=== PATIENT | male | born 1980 | race Caucasian/White ===

== ENCOUNTER 2016-09-20 15:55 | Emergency (ER) | payer MEDICARE, OTHER ==
[2016-09-20 15:56] VITALS: BP 162/82
--- NOTE | 2016-09-20 17:00 | ERNOTE ---
Medical Problem HPI - Narrative Date of Service: 09/20/16 - General Chief Complaint: Laceration Time Seen by Provider: 09/20/16 16:45 Source: other - Caregiver Exam Limitations: other - Mentally disabled, unable to communicate needs or follow commands - Immun/Allergies/Home Medications Immunizations: IMMUNIZATION HX History of Influenza Vaccine No Hx Pneumococcal Vaccination No Allergies/Adverse Reactions: Allergies plasma protein fraction [From Plasmanate] Allergy (Verified 10/09/16 16:31) Home Medications: HOME MEDICATIONS Acetaminophen [Tylenol] 325 mg PO Q4H PRN 06/16/12 [Last Taken 09/23/14 12:15] Albuterol Sulfate [Albuterol Sulfate 2.5 MG/0.5ML] 2.5 mg IH QID PRN 06/16/12 [ Last Taken 10/16/13] Desloratadine [Clarinex] 5 mg PO DAILY 06/16/12 [Last Taken 09/23/14 07:00] Divalproex Sodium [Depakote ER] 500 mg PO BID 06/16/12 [Last Taken 09/23/14 07: 00] Gly/Dimeth/Petrolat,Wht/Water [Cetaphil Moisturizing Cream] 1 appl TD DAILY PRN 06/16/12 [Last Taken 10/16/13] Hydroxyzine HCl 50 mg PO HS 06/16/12 [Last Taken 10/16/13] LORazepam [Ativan] 0.5 mg PO TID 06/16/12 [Last Taken 10/16/13] LORazepam [Ativan] 1 mg PO PRN PRN 06/16/12 [Last Taken 10/16/13] Mometasone Furoate [Nasonex] 2 puff NS DAILY 06/16/12 [Last Taken 10/16/13] Oxcarbazepine 600 mg PO BID 06/16/12 [Last Taken 10/16/13] Prochlorperazine Maleate [Compazine] 5 mg PO Q6H PRN 06/16/12 [Last Taken ] Vits A and D/White Pet/Lanolin [Vitamin A & D Ointment Packet] 1 appl TP TID PRN 06/16/12 [Last Taken 10/16/13] lamoTRIgine [Lamotrigine] 200 mg PO BID 06/16/12 [Last Taken 09/23/14 07:00] Alendronate Sodium [Fosamax] 70 mg PO MO 09/25/13 [Last Taken 09/21/14 07:00] Chlorhexidine Gluconate [Peridex 0.12%] 4 sprays PO DAILY 09/25/13 [Last Taken 09/23/14 07:00] Divalproex Sodium [Depakote ER] 250 mg PO HS 09/25/13 [Last Taken 10/16/13] Neomycin/Bacitracin/Polymyxinb [Triple Antibiotic Ointment] 1 each TP PRN PRN [Last Taken 10/16/13] Sodium Fluoride [Prevident 5000] 1 appl DT HS 09/25/13 [Last Taken 10/16/13] Calcium Carbonate/Vitamin D3 [Calcium 600 + Vit D 400 Softgl] 1 each PO TID [Last Taken Unknown] Ergocalciferol [Calciferol] 50,000 units PO Q30D 09/24/14 [Last Taken 08/31/14] Fluticasone Propionate [Flovent Hfa] 1 puff IH DAILY 07/05/15 [Last Taken Unknown] Magnesium Citrate 296 ml PO ONCE #1 bottle 07/05/15 [Last Taken Unknown] guaiFENesin [Mucinex] 600 mg PO BID 07/05/15 [Last Taken Unknown] - History of Present History Narrative: 36 y/o male brought to the ED by his caregiver for lacerations to his face due to a fall at home. His gait is usually unsteady anyway. His tetanus is current. The fall was witnessed. There was no LOC. Review of Systems - Review of Systems Constitutional: Absent: recent illness, fever, decreased activity level EYE: Present: no symptoms reported ENT: Present: no symptoms reported Respiratory: Present: no symptoms reported Cardiology: Present: no symptoms reported Gastrointestinal/Abdominal: Absent: nausea, vomiting Genitourinary: Present: no symptoms reported Musculoskeletal: Absent: muscle stiffness, joint swelling Skin: Absent: lesions, lumps, change in color Neurological: Present: pre-existing deficit. Absent: weakness Endocrine: Present: no symptoms reported Hematologic/Lymphatic: Present: no symptoms reported Psych: Present: no symptoms reported - Patient's Past Medical History Patient History - Medical: Seizures, Other Patient History - Cardiac/Respiratory: No pertinent hx Patient History - Cancer: No Hx of Cancer Patient History - Surgical Procedures: No surgical history Patient History - Other: None - Social History Living Situations: assisted living Abuse History: No History of abuse Psych History: Current tx/ever been on anti-depressants or anti-anxiety meds Alcohol Use: none Drug Use: none - Immunizations Hx Pneumococcal Vaccination: No History of Influenza Vaccine: No Physical Exam - Physical Exam General Appearance: Present: wd/wn, alert, no apparent distress, active Eye Exam: Normal inspection: bilateral Respiratory: Present: no respiratory distress, no accessory muscle use Cardiovascular/Chest: Present: normal peripheral pulses Extremity Exam: Present: normal inspection, normal range of motion, no edema Neurological Exam: Present: alert, no motor/sensory deficits, other - Does not communicate or follow commands, uncooperative and combative . Absent: oriented , normal mood/affect Skin Exam: Present: normal color, warm/dry, other - small laceration lateral to left eye and anterior to right ear ED Progress - Vital Signs Patient's Vital Signs:: I have reviewed the patient's vital signs. - Progress/Reassessment Chief Complaint: Laceration Progress:: Unchanged Plan - Plan Plan: Wounds cleansed and dressed with great difficulty, laceration in front of right ear would have a better outcome with closure but patient is combative to the extent that sedation would be required. Discussed with caregiver that wound will heal, but will take some time. Departure - Departure Clinical Impression: Laceration of face, multiple sites Disposition: Home self-care Condition: Stable Instructions: Laceration Care, Adult, [id number] Additional Instructions: Clean wounds with mild soap and water, bandage as needed Continue routine medications and treatments Follow up for any concerns Referrals: Dontrell Vyas MD [Primary Care Provider] -
--- OUTSIDE RECORDS SUMMARY | 2016-09-20 17:14 | XMS REPORT | Continuity of Care Document ---
:1980 Author Organization [facility] ([facility]) Address [address] [place] [address] Phone [phone] Care Team Providers Name Role Phone Jennifer Vyascristina Primary Care Provider [phone] Source Comments This disclosure is being made pursuant to the Care Everywhere program, applicable federal and state laws, and may not contain all informaitonavailable regarding this patient.[facility] ([facility]) Active Allergies and Adverse Reactions Allergen Noted Date Severity Reactions Comments Albumen (Egg White) Unknown Other Agent 09/16/2009 Unknown Plasmante, cats, weeds, molds, trees, dustmites Current Medications Prescription Sig. Disp. Refills Start Date End Date Status OXcarbazepine take 600 mg by Active (TRILEPTAL) 600 mg mouth 2 times tablet daily. lamoTRIgine (LAMICTAL) take 150 mg by Active 150 mg tablet mouth 2 times daily. LORazepam (ATIVAN) 1 mg take 1 mg by mouth Active tablet 3 times daily. And prn for seizures and anxiety calcium take 1 Tab by mouth Active carbonate-vitamin D 3 times daily with (OYST-JASE-D 500) 1,250 meals. mg-200 unit per tablet hydrOXYzine (VISTARIL) take 50 mg by mouth Active 50 mg capsule at bedtime. acetaminophen (GENEBS) take 2 Tabs by Active 325 mg tablet mouth every 6 hours as needed. ergocalciferol (VITAMIN take 50,000 Units Active D2) 50,000 unit capsule by mouth every month. divalproex (DEPAKOTE ER) take 500 mg by Active 500 mg ER tablet mouth 2 times daily. desloratadine (CLARINEX) Take 5 mg by mouth Active 5 mg tablet daily. alendronate 70 mg tablet Take 70 mg by mouth Active every week fluticasone 50 Use 2 Sprays into Active mcg/Actuation nasal both nostrils daily spray [id number] Apply topically as Active myxin B ointment needed mupirocin (BACTROBAN) 2 Use into both Active % nasal ointment nostrils 2 times daily albuterol 2.5 mg/3 mL Use 3 mL by Active inhalation solution inhalation every 4 hours as needed PROchlorPERAZINE PO Take 5 mg by mouth Active every 6 hours as needed sodium fluoride 1.1 % Apply 1 application 51 g 11 02/17/2015 Active dental cream to the teeth at bedtime Nothing by mouth for 30 minutes after brushing. chlorhexidine 0.12 % Swish and 473 mL 0 02/17/2015 Active oral rinse expectorate 5 ml twice daily as directed. Nothing by mouth for 30 minutes after. benzoyl peroxide 10 % Apply topically Active topical wash daily. ondansetron 4 mg tablet Take 4 mg by mouth Active as needed. guaiFENesin 20 mg/mL Take 10 mL by mouth Active syrup as needed. polyethylene glycol 3350 Take 17 g by mouth Active (GAVILAX) 17 gram packet daily as needed. sodium fluoride 1.1 % Apply 1 application 51 g 11 09/06/2016 Active dental cream to the teeth at bedtime. Nothing by mouth for 30 minutes after brushing. chlorhexidine 0.12 % Swish and 473 mL 0 09/06/2016 Active oral rinse expectorate 5 ml twice daily as directed. Nothing by mouth for 30 minutes after. 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 Unspecified disturbance of conduct 11/07/2006 Other constipation 11/07/2006 Most Recent Encounters Date Type Specialty Providers Description 09/06/2016 Hospital Encounter Ambulatory Surgery Chris Ricketts, Dx: Dental caries DDS (Primary Dx) 09/06/2016 Surgery Ambulatory Surgery Chris Ricketts, RESTORATIONS DDS WITH/WITHOUT EXTRACTIONS, ADULT 09/05/2016 Telephone Dentistry Tavo Garg Chief Comp: J, DDS Monitored Phone Call 08/23/2016 Hospital Encounter Anesthesiology Default, Other Chief Comp: Patient Billg - Defo Reported Reason For Tashi, Visit DESTINEY Gore 08/23/2016 Office Visit Internal Medicine - Default, Other Dx: Profound Specialty Billg - Defo intellectual Earl Luke disabilities F ([id number]), Msc Surg [facility] 08/23/2016 Anesthesia Event Ambulatory Surgery Bao Akins ARNP 07/11/2016 Orders/Notes Dentistry Tavo Garg Dx: Profound LUCILA Walters intellectual disabilities (Primary Dx) Social History Tobacco Use Types Packs/Day Years Used Date Never Smoker Smokeless Tobacco: Never Used Alcohol Use Drinks/Week oz/Week Comments No Last Filed Vital Signs Vital Sign Reading Time Taken Blood Pressure 113/72 09/06/2016 3:45 PM POWER LINE INSTALLER AND REPAIRER Pulse 77 09/06/2016 12:51 PM POWER LINE INSTALLER AND REPAIRER Temperature 36.4 C (97.5 F) 09/06/2016 4:10 PM POWER LINE INSTALLER AND REPAIRER Respiratory Rate 20 09/06/2016 4:10 PM POWER LINE INSTALLER AND REPAIRER Height 1.5 m (4' 11.06") 01/31/2012 3:18 PM CDT Weight 56.7 kg (125 lb) 09/06/2016 12:51 PM POWER LINE INSTALLER AND REPAIRER Body Mass Index 25.2 09/06/2016 12:51 PM POWER LINE INSTALLER AND REPAIRER Oxygen Saturation 96% 09/06/2016 4:10 PM POWER LINE INSTALLER AND REPAIRER Plan of Care Health Maintenance Due Date Last Done Comments Hepatitis B Vaccine (1 of 3 - Primary Series) 1980 Tdap Vaccine 1990 Lipid Disorder Screening 1997 MMR Vaccine 1997 Td Vaccine 1997 Influenza Vaccine: Seasonal (#1) 01/31/2016 Procedures from Last 3 Months Procedure Name Priority Date/Time Associated Diagnosis Comments ABSTRACTED BY BILLING Routine 09/06/2016 3:59 Profound Results for this STAFF PM POWER LINE INSTALLER AND REPAIRER intellectual procedure are in disabilities the results section. RESTORATIONS 09/06/2016 1:34 Profound WITH/WITHOUT PM POWER LINE INSTALLER AND REPAIRER intellectual EXTRACTIONS, ADULT disabilities Results from Last 3 Months DENTISTRY OR CASE (09/06/2016 3:59 PM) Narrative Chris Ricketts DDS 09/06/20163:59 PM Operation Record Procedure Date: 09/06/16 Surgical Service: [facility] Dentistry Operating Room Data: 9 Location: [facility] Attending Staff: Chris Ricketts Resident Surgeon: Tavo Garg Literacy Education Professor: Nimco Gomez Anesthesia:See Anesthesia Flow Sheet. Pre-operative Diagnosis:Plaque, Calculus and Caries and Mental Retardation Operation/Procedure: The medical history was reviewed and the pre-anesthesia evaluation was completed.The patient was taken to the OR, placed in a supine position and placed under general anesthesia by the Department of Anesthesia.A nasoendotracheal tube was placed by the Department of Anesthesia and secured by the Department of Hospital Dentistry.A throat pack was placed by the Department of Hospital Dentistry.A full mouth exam was completed.Examination of the tongue, floor of mouth and mucosa revealed no abnormal findings.X-rays were made and revealed.A Cavitron Debridement was performed and hand instruments used to remove sub and supragingival calculus.Tooth #7F was prepared and restored using dentin condition and Fuji II LC.The mouth was suctioned free of all debris, throat pack was removed and the patient care was turned over to the Department of Anesthesia for extubation and then transported to 1st stage recovery. Prescription written were Prevident and Chlorhexidine Oral Rinse. Proper post-op instructions were given to the patient's family/manager park.Patient to return in 18 months for recall. Post-operative Diagnosis: same Complications:None. Teaching Statement Dr. Chris Snowden present for the entire procedure. Tavo Garg DDS
== END 2016-09-20 17:09 | disposition home or self-care (01) ==
LOC: ER 15:55
DX: S01.81XA Laceration without foreign body of other part of head, initial encounter (principal); S01.311A Laceration without foreign body of right ear, initial encounter; W19.XXXA Unspecified fall, initial encounter; Y92.009 Unspecified place in unspecified non-institutional (private) residence as the place of occurrence of the external cause

== ENCOUNTER 2016-10-09 15:46 | Emergency (ER) | payer MEDICARE, OTHER ==
[2016-10-09 16:01] VITALS: BP 105/93
[2016-10-09 16:02] LABS: Hematocrit 40.6 % (42.0-52.0); Hemoglobin 13.9 gm/dL (13.5-18.0); Mean Cell Volume 98.3 fl (78-100); Mean Corpuscular Hemoglobin 33.7 pg (27-31); Mean Corpuscular Hgb Conc 34.2 g/dl (32-36); Neutrophil # 5.6 K/mm3 (1.3-6.0); Neutrophil % 57.8 % (42-75.0); Platelet Count 201 K/mm3 (150-450); Red Blood Count 4.13 M/mm3 (4.7-6.0); Red Cell Distribution Width 12.5 % (11.5-14.0); White Blood Count 9.8 K/mm3 (4.0-10.5)
--- OUTSIDE RECORDS SUMMARY | 2016-10-09 16:11 | XMS REPORT | Continuity of Care Document ---
:1980 Author Organization [facility] ([facility]) Address [address] [place] [address] Phone [phone] Care Team Providers Name Role Phone Jennifer Vyascristina Primary Care Provider [phone] Source Comments This disclosure is being made pursuant to the Care Everywhere program, applicable federal and state laws, and may not contain all informaitonavailable regarding this patient.[facility] ([facility]) Active Allergies and Adverse Reactions Allergen [...] Active mcg/Actuation nasal both nostrils daily spray [id number] Apply topically as Active myxin B ointment [...] Taken Blood Pressure 113/72 09/06/2016 3:45 PM OCCUPATIONAL HEALTH NURSE Pulse 77 09/06/2016 12:51 PM OCCUPATIONAL HEALTH NURSE Temperature 36.4 C (97.5 F) 09/06/2016 4:10 PM OCCUPATIONAL HEALTH NURSE Respiratory Rate 20 09/06/2016 4:10 PM OCCUPATIONAL HEALTH NURSE Height 1.5 m (4' 11.06") 01/31/2012 3:18 PM CDT Weight 56.7 kg (125 lb) 09/06/2016 12:51 PM OCCUPATIONAL HEALTH NURSE Body Mass Index 25.2 09/06/2016 12:51 PM OCCUPATIONAL HEALTH NURSE Oxygen Saturation 96% 09/06/2016 4:10 PM OCCUPATIONAL HEALTH NURSE Plan of Care Health Maintenance Due Date Last Done Comments Hepatitis B Vaccine (1 of 3 - Primary Series) 1980 Tdap Vaccine 1990 Lipid Disorder Screening 1997 MMR Vaccine 1997 Td Vaccine 1997 Influenza Vaccine: Seasonal (#1) 01/31/2016 Procedures from Last 3 Months Procedure Name Priority Date/Time Associated Diagnosis Comments ABSTRACTED BY BILLING Routine 09/06/2016 3:59 Profound Results for this STAFF PM OCCUPATIONAL HEALTH NURSE intellectual procedure are in disabilities the results section. RESTORATIONS 09/06/2016 1:34 Profound WITH/WITHOUT PM OCCUPATIONAL HEALTH NURSE intellectual EXTRACTIONS, ADULT disabilities Results from Last 3 Months DENTISTRY OR CASE (09/06/2016 3:59 PM) Narrative Chris Ricketts DDS 09/06/20163:59 PM Operation Record Procedure Date: 09/06/16 Surgical Service: [facility] Dentistry Operating Room Data: 9 [address]: [facility] Attending Staff: Chris Ricketts Resident Surgeon: Tavo Garg Cost Control Analyst: Nimco Gomez Anesthesia:See Anesthesia Flow Sheet. Pre-operative [...] post-op instructions were given to the patient's family/director of in service education.Patient to return in 18 months for recall. Post-operative Diagnosis: same Complications:None. Teaching Statement Dr. Chris Snowden present for the entire procedure. Tavo Garg DDS
[2016-10-09 16:15] LABS: Albumin * 3.4 gm/dl (3.4-5.0); Anion Gap 11.6 mmol/L (6.8-13.8); BUN/Creatinine Ratio 14.1 (9.0-21.6); Bilirubin, Total 0.2 mg/dL (0.0-1.1); Ca. Corrected For Albumin 9.2 mg/dL (8.4-10.2); Carbon Dioxide 31.6 mmol/L (24-32.6); Potassium 4.2 mmol/L (3.4-4.6); Total Protein 7.6 gm/dL (6.2-8.2)
--- NOTE | 2016-10-09 16:15 | ERNOTE ---
Medical Problem HPI - Narrative Date of Service: 10/09/16 - General Chief Complaint: Flu Symptoms Time Seen by Provider: 10/09/16 16:02 Source: RN/MD, RN notes reviewed, old records, other - State Assessed Properties Director Exam Limitations: other - autism, profound mental retardation, nonverbal - Immun/Allergies/Home Medications Immunizations: IMMUNIZATION HX Immunizations Up to Date Yes History of Influenza Vaccine Yes Hx Pneumococcal Vaccination No Allergies/Adverse Reactions: Allergies plasma protein fraction [From Plasmanate] Allergy (Verified 10/09/16 16:31) Home Medications: HOME MEDICATIONS Acetaminophen [Tylenol] 325 mg PO Q4H PRN 06/16/12 [Last Taken 09/23/14 12:15] Albuterol Sulfate [Albuterol Sulfate 2.5 MG/0.5ML] 2.5 mg IH QID PRN 06/16/12 [ Last Taken 10/16/13] Desloratadine [Clarinex] 5 mg PO DAILY 06/16/12 [Last Taken 09/23/14 07:00] Divalproex Sodium [Depakote ER] 500 mg PO BID 06/16/12 [Last Taken 09/23/14 07: 00] Gly/Dimeth/Petrolat,Wht/Water [Cetaphil Moisturizing Cream] 1 appl TD DAILY PRN 06/16/12 [Last Taken 10/16/13] Hydroxyzine HCl 50 mg PO HS 06/16/12 [Last Taken 10/16/13] LORazepam [Ativan] 0.5 mg PO TID 06/16/12 [Last Taken 10/16/13] LORazepam [Ativan] 1 mg PO PRN PRN 06/16/12 [Last Taken 10/16/13] Mometasone Furoate [Nasonex] 2 puff NS DAILY 06/16/12 [Last Taken 10/16/13] Oxcarbazepine 600 mg PO BID 06/16/12 [Last Taken 10/16/13] Prochlorperazine Maleate [Compazine] 5 mg PO Q6H PRN 06/16/12 [Last Taken ] Vits A and D/White Pet/Lanolin [Vitamin A & D Ointment Packet] 1 appl TP TID PRN 06/16/12 [Last Taken 10/16/13] lamoTRIgine [Lamotrigine] 200 mg PO BID 06/16/12 [Last Taken 09/23/14 07:00] Alendronate Sodium [Fosamax] 70 mg PO MO 09/25/13 [Last Taken 09/21/14 07:00] Chlorhexidine Gluconate [Peridex 0.12%] 4 sprays PO DAILY 09/25/13 [Last Taken 09/23/14 07:00] Divalproex Sodium [Depakote ER] 250 mg PO HS 09/25/13 [Last Taken 10/16/13] Neomycin/Bacitracin/Polymyxinb [Triple Antibiotic Ointment] 1 each TP PRN PRN [Last Taken 10/16/13] Sodium Fluoride [Prevident 5000] 1 appl DT HS 09/25/13 [Last Taken 10/16/13] Calcium Carbonate/Vitamin D3 [Calcium 600 + Vit D 400 Softgl] 1 each PO TID [Last Taken Unknown] Ergocalciferol [Calciferol] 50,000 units PO Q30D 09/24/14 [Last Taken 08/31/14] Fluticasone Propionate [Flovent Hfa] 1 puff IH DAILY 07/05/15 [Last Taken Unknown] Magnesium Citrate 296 ml PO ONCE #1 bottle 07/05/15 [Last Taken Unknown] guaiFENesin [Mucinex] 600 mg PO BID 07/05/15 [Last Taken Unknown] - History of Present History Narrative: 36 y/o male brought to the ED by his continuity director for a cough and congestion that began 3 days ago. He initially presented to the walk-in clinic, but was sent here due to concerns over his poor fluid intake today and not urinating since early this morning. He has not been febrile. He has not been given anything for his symptoms. Review of Systems - Review of Systems Constitutional: Present: decreased activity level. Absent: fever, chills EYE: Present: no symptoms reported ENT: Present: nose congestion, nasal drainage. Absent: ear discharge Respiratory: Present: cough. Absent: shortness of breath, wheezing Cardiology: Absent: syncope, edema Gastrointestinal/Abdominal: Present: eating less, drinking less. Absent: vomiting, diarrhea Genitourinary: Present: decreased urinary output. Absent: hematuria Musculoskeletal: Present: no symptoms reported Skin: Absent: rash, lesions Neurological: Present: pre-existing deficit Endocrine: Present: no symptoms reported Hematologic/Lymphatic: Present: no symptoms reported Psych: Present: no symptoms reported - Patient's Past Medical History Patient History - Medical: Seizures, Other - Autism, Profound mental retardation Patient History - Cardiac/Respiratory: No pertinent hx Patient History - Cancer: No Hx of Cancer Patient History - Surgical Procedures: T & A, ENT Patient History - Other: None - Social History Living Situations: other Abuse History: No History of abuse Psych History: Current tx/ever been on anti-depressants or anti-anxiety meds Smoking Status: Never smoker Alcohol Use: none Drug Use: none - Immunizations Immunizations Up to Date: Yes Hx Pneumococcal Vaccination: No History of Influenza Vaccine: Yes Physical Exam - Physical Exam General Appearance: Present: wd/wn, alert, no apparent distress, active, other - resists exam Ears, Nose, Throat: Present: nasal congestion, pharyngeal erythema. Absent: abnormal TM (R), abnormal TM (L), sinus pain/drainage, pharyngeal swelling Neck: Present: normal inspection, full range of motion Respiratory: Present: no respiratory distress, normal breath sounds, no accessory muscle use, lungs clear Cardiovascular/Chest: Present: regular rate, rhythm, no murmur Neurological Exam: Present: alert. Absent: oriented, normal mood/affect Skin Exam: Present: normal color, warm/dry ED Progress - Results and Orders Patient's Lab Results:: I have reviewed the patient's lab results. - Vital Signs Patient's Vital Signs:: I have reviewed the patient's vital signs. Vital Signs: Vital Signs 10/09/16 15:53 Temperature 36.6 C Pulse Rate 82 Respiratory 18 Rate Blood Pressure 105/93 O2 Sat by Pulse 95 Oximetry - Progress/Reassessment Chief Complaint: Flu Symptoms Progress:: Unchanged Departure - Departure Clinical Impression: Upper respiratory infection, viral Disposition: Home self-care Condition: Stable Instructions: Upper Respiratory Infection, Adult, Ybgu-za-Ynsy Additional Instructions: Encourage liquids Give Tylenol as directed for discomfort - may help improve oral intake Continue current medications Referrals: Dontrell Vyas MD [Primary Care Provider] -
== END 2016-10-09 16:49 | disposition home or self-care (01) ==
LOC: ER 15:46
DX: J06.9 Acute upper respiratory infection, unspecified (principal); B97.89 Other viral agents as the cause of diseases classified elsewhere; R56.9 Unspecified convulsions

== ENCOUNTER 2016-11-20 16:54 | Emergency (ER) | payer MEDICARE, OTHER ==
[2016-11-20 16:55] VITALS: BP 105/93
--- OUTSIDE RECORDS SUMMARY | 2016-11-20 17:35 | XMS REPORT | Continuity of Care Document ---
:1980 Author Organization [facility] ([facility]) Address [address] [place] [address] Phone [phone] Care Team Providers Name Role Phone Meredithjasonpaty Dontrell Primary Care Provider [phone] Source Comments This disclosure is being made pursuant to the Care Everywhere program, applicable federal and state laws, and may not contain all informaitonavailable regarding this patient.[facility] ([facility]) Active Allergies and Adverse Reactions Allergen [...] Active mcg/Actuation nasal both nostrils daily spray [id number] Apply topically as Active myxin B ointment [...] Encounters Date Type Specialty Providers Description 09/06/2016 Surgery Ambulatory Surgery Chris Ricketts, MICHAEL DDS WITH/WITHOUT EXTRACTIONS, ADULT 09/05/2016 Telephone Dentistry Tavo Garg Chief Comp: LUCILA Walters Monitored Phone Call 08/23/2016 Hospital Encounter Anesthesiology Default, Other Chief Comp: Patient Billg - Defo Reported Reason For Tashi, Visit DESTINEY Gore 08/23/2016 Office Visit Internal Medicine - Default, Other Dx: Profound Specialty Billg - Defo intellectual Earl Luke MD ([id number]), [facility] 08/23/2016 Anesthesia Event Ambulatory Surgery Bao Akins ARNP Social History Tobacco Use Types Packs/Day Years Used Date Never Smoker Smokeless Tobacco: Never Used Alcohol Use Drinks/Week oz/Week Comments No Last Filed Vital Signs Vital Sign Reading Time Taken Blood Pressure 113/72 09/06/2016 3:45 PM SOFTWARE PROGRAM MANAGER Pulse 77 09/06/2016 12:51 PM SOFTWARE PROGRAM MANAGER Temperature 36.4 C (97.5 F) 09/06/2016 4:10 PM SOFTWARE PROGRAM MANAGER Respiratory Rate 20 09/06/2016 4:10 PM SOFTWARE PROGRAM MANAGER Height 1.5 m (4' 11.06") 01/31/2012 3:18 PM CDT Weight 56.7 kg (125 lb) 09/06/2016 12:51 PM SOFTWARE PROGRAM MANAGER Body Mass Index 25.2 09/06/2016 12:51 PM SOFTWARE PROGRAM MANAGER Oxygen Saturation 96% 09/06/2016 4:10 PM SOFTWARE PROGRAM MANAGER Plan of Care Health Maintenance Due Date Last Done Comments Hepatitis B Vaccine (1 of 3 - Primary Series) 1980 Tdap Vaccine 1990 Lipid Disorder Screening 1997 MMR Vaccine 1997 Td Vaccine 1997 Influenza Vaccine: Seasonal (Season Ended) 2017 Procedures from Last 3 Months Procedure Name Priority Date/Time Associated Diagnosis Comments ABSTRACTED BY BILLING Routine 09/06/2016 3:59 Profound Results for this STAFF PM SOFTWARE PROGRAM MANAGER intellectual procedure are in disabilities the results section. RESTORATIONS 09/06/2016 1:34 Profound WITH/WITHOUT PM SOFTWARE PROGRAM MANAGER intellectual EXTRACTIONS, ADULT disabilities Results from Last 3 Months DENTISTRY OR CASE (09/06/2016 3:59 PM) Chris Antoine, LUCILA 09/06/20163:59 PM Operation Record Procedure Date: 09/06/16 Surgical Service: Hospital Dentistry Operating Room Data: 9 Location: [facility] Attending Staff: Chris Ricketts Resident Surgeon: Tavo Garg Outside Plant Cable Engineer: Nimco Gomez Anesthesia:See Anesthesia Flow Sheet. Pre-operative [...] post-op instructions were given to the patient's family/sports marketing coordinator.Patient to return in 18 months for recall. Post-operative Diagnosis: same Complications:None. Teaching Statement Dr. Chris Snowden present for the entire procedure. Tavo Garg DDS
[2016-11-20 17:58] LABS: Hematocrit 45.6 % (42.0-52.0); Hemoglobin 15.3 gm/dL (13.5-18.0); Mean Cell Volume 100.4 fl (78-100); Mean Corpuscular Hemoglobin 33.7 pg (27-31); Mean Corpuscular Hgb Conc 33.6 g/dl (32-36); Mean Platelet Volume 10.9 fl (6.0-9.5); Platelet Count 173 K/mm3 (150-450); Red Blood Count 4.54 M/mm3 (4.7-6.0); Red Cell Distribution Width 12.8 % (11.5-14.0)
[2016-11-20 17:59] LABS: Total Cells Counted 100
[2016-11-20 18:13] LABS: Albumin * 3.8 gm/dl (3.4-5.0); Anion Gap 13.9 mmol/L (6.8-13.8); Bilirubin, Total 0.2 mg/dL (0.0-1.1); Ca. Corrected For Albumin 9.5 mg/dL (8.4-10.2); Calcium * 9.7 mg/dL (7.9-10.9); Carbon Dioxide 29.7 mmol/L (24-32.6); Potassium 4.6 mmol/L (3.4-4.6); Total Protein 7.9 gm/dL (6.2-8.2); Valproic Acid 116.3 mcg/mL (50.0-100.0)
[2016-11-20 18:14] LABS: Urine Bilirubin Negative (NEGATIVE); Urine Blood Negative /ul (NEGATIVE); Urine Ketone Negative (NEGATIVE); Urine Nitrite Negative (NEGATIVE); Urine Protein 30 mg/dL (NEGATIVE); Urine Specific Gravity 1.025 SP.GR. (1.005-1.030); Urine Urobilinogen Normal (NORMAL); Urine pH 6.5 pH (5.0-7.0)
--- NOTE | 2016-11-20 18:25 | ERNOTE ---
Head Injury HPI - General Injury to: head Time Seen by Provider: 11/20/16 17:29 Source: old records, other - screw remover - Immun/Allergies/Home Medications Immunization: IMMUNIZATION HX Immunizations Up to Date Yes History of Influenza Vaccine Yes Hx Pneumococcal Vaccination Yes Allergies/Adverse Reactions: Allergies Allergy/AdvReac Type Severity Reaction Status Date / Time plasma protein fraction Allergy Verified 11/20/16 17:38 [From Plasmanate] Home Medications: HOME MEDICATIONS Acetaminophen [Tylenol] 325 mg PO Q4H PRN 06/16/12 [Last Taken 09/23/14 12:15] Desloratadine [Clarinex] 5 mg PO DAILY 06/16/12 [Last Taken 09/23/14 07:00] Divalproex Sodium [Depakote ER] 500 mg PO BID 06/16/12 [Last Taken 09/23/14 07: 00] Hydroxyzine HCl 50 mg PO HS 06/16/12 [Last Taken 10/16/13] LORazepam [Ativan] 2 mg PO TID PRN 06/16/12 [Last Taken 10/16/13] Oxcarbazepine 600 mg PO BID 06/16/12 [Last Taken 10/16/13] Vits A and D/White Pet/Lanolin [Vitamin A & D Ointment Packet] 1 appl TP TID PRN 06/16/12 [Last Taken 10/16/13] lamoTRIgine [Lamotrigine] 200 mg PO BID 06/16/12 [Last Taken 09/23/14 07:00] Alendronate Sodium [Fosamax] 70 mg PO MO 09/25/13 [Last Taken 09/21/14 07:00] Divalproex Sodium [Depakote ER] 250 mg PO BID 09/25/13 [Last Taken 10/16/13] Neomycin/Bacitracin/Polymyxinb [Triple Antibiotic Ointment] 1 each TP PRN PRN [Last Taken 10/16/13] Calcium Carbonate/Vitamin D3 [Calcium 600 + Vit D 400 Softgl] 1 each PO TID [Last Taken Unknown] Fluticasone Propionate [Flovent Hfa] 1 puff IH DAILY 07/05/15 [Last Taken Unknown] LORazepam [Ativan] 1 mg PO Q1H PRN 11/20/16 [Last Taken Unknown] Ondansetron HCl [Zofran] 4 mg PO Q8H 11/20/16 [Last Taken Unknown] Polyethylene Glycol 3350 [Miralax] 17 gm PO DAILY 11/20/16 [Last Taken Unknown] guaiFENesin/DEXTROMETHORPHAN [Robitussin-Dm] 10 ml PO Q4H 11/20/16 [Last Taken Unknown] traZODone HCL [Trazodone HCl] 50 mg PO HS 11/20/16 [Last Taken Unknown] - History of Present Illness Narrative: He has a fairly profound history of falls and has fallen again. He is in a penitentiary and is on multiple seizure medicines. According to screw remover he is at his baseline and no evidence of any head injury can't be found. Occurred: just prior to arrival Location Occurred: home Head Injury Location: other - unknown Reason for Fall: Reports: other - chronic falls - Patient's Past Medical History Patient History - Medical: Anxiety, Depression, Seizures Patient History - Cardiac/Respiratory: No pertinent hx Patient History - Cancer: No Hx of Cancer Patient History - Surgical Procedures: T & A, ENT Patient History - Other: None - Social History Living Situations: home Abuse History: No History of abuse Psych History: Hx of Anxiety, Hx of Depression, Current tx/ever been on anti- depressants or anti-anxiety meds Alcohol Use: none Drug Use: none - Immunizations Immunizations Up to Date: Yes Hx Pneumococcal Vaccination: Yes History of Influenza Vaccine: Yes Physical Exam - Physical Exam General Appearance: Present: no apparent distress Ears, Nose, Throat: Present: normal ENT inspection, other - no evidence of any head trauma Neck: Present: normal inspection Respiratory: Present: no respiratory distress, normal breath sounds Cardiovascular/Chest: Present: regular rate, rhythm Gastrointestinal/Abdominal: Present: normal bowel sounds, soft Rectal Exam: Present: deferred Male Genitals Exam: Present: deferred Back Exam: Present: normal inspection Neurological Exam: Present: disoriented to person, disoriented to time, disoriented to place, disoriented to situation - chronic Skin Exam: Present: normal color, warm/dry Lymphatic Exam: Present: no adenopathy ED Progress - Results and Orders Patient's Lab Results:: I have reviewed the patient's lab results. - Vital Signs Patient's Vital Signs:: I have reviewed the patient's vital signs. Vital Signs: Vital Signs 11/20/16 17:16 Temperature 36.9 C Pulse Rate 77 Respiratory 20 Rate O2 Sat by Pulse 96 Oximetry - Progress/Reassessment Chief Complaint: Head Injury Plan - Plan Plan: Patient is mildly elevated in his valproic acid. The caretakers withhold his evening dose and discuss further dosing with the family doctor. His Tegretol levels were also low the family doctor within her face with that as well. Lamictal is a send out and we'll wait for that to return an no other acute abnormalities were noted on his laboratory or urine test. Departure Clinical Impression: Seizure disorder Fall Qualifiers: Encounter type: initial encounter Qualified Code(s): W19.XXXA - Unspecified fall, initial encounter - Departure Disposition: Other health care facility Condition: Good Instructions: Fall Prevention in the Home, [id number], Epilepsy, [id number] Additional Instructions: Will need to decrease his valproic acid as well as increasing his Tegretol dosing to remain in the normal range. Home health will manage this on site. Referrals: Dontrell Vyas MD [Primary Care Provider] -
[2016-11-20 18:28] LABS: Urine Amorphous Sediment Few - 1+ (NONE-FEW); Urine Appearance Clear; Urine Bacteria None Seen; Urine Color Yellow; Urine RBC None Seen /hpf (0-5); Urine WBC None Seen /hpf (0-5)
[2016-11-20 19:12] LABS: Eosinophil 5 % (0-3); Lymphocyte 42 % (20-51); Monocyte 10 % (0-9); Neutrophil 43 % (42-75); Neutrophil # 1.3 K/mm3 (1.3-6.0)
[2016-11-20 19:14] LABS: Giant Platelets Trace; Platelet Estimate Normal (NORMAL); RBC Morphology Normal (NORMAL)
[2016-11-20 19:15] LABS: Dohle Bodies Trace
== END 2016-11-20 18:45 | disposition short-term general hospital (02) ==
LOC: ER 16:54
DX: G40.909 Epilepsy, unspecified, not intractable, without status epilepticus (principal); W19.XXXA Unspecified fall, initial encounter

== ENCOUNTER 2018-07-06 10:36 | Inpatient (IN) | payer MEDICAID, MEDICARE ==
[2018-07-06] MEDS ORDERED: LORazepam 2 MG/ML DISP.SYRIN ONE ×2 (10:42→12:01)
[2018-07-06] MEDS ORDERED: LORazepam 2 MG/ML DISP.SYRIN IV ONE ×2 (10:46→12:33)
[2018-07-06] MEDS ORDERED: ALBUTEROL SULFATE 2.5 MG/0.5 ML VIAL.NEB IH ONE ×2 (11:03→11:04)
[2018-07-06 11:07] LABS: Hematocrit 47.9 % (42.0-52.0); Hemoglobin 15.8 gm/dL (13.5-18.0); Mean Cell Volume 103.9 fl (78-100); Mean Corpuscular Hemoglobin 34.3 pg (27-31); Mean Platelet Volume 10.1 fl (8-11.3); Neutrophil # 26.7 K/mm3 (1.3-6.0); Neutrophil % 85.6 % (42-75.0); Platelet Count 402 K/mm3 (150-450); Red Blood Count 4.61 M/mm3 (4.7-6.0); Red Cell Distribution Width 13.1 % (11.5-14.0); White Blood Count 31.1 K/mm3 (4.0-10.5)
[2018-07-06 11:09] LABS: Total Cells Counted 100
[2018-07-06 11:31] LABS: AST 183 U/L (0-48); Albumin * 4.2 gm/dl (3.4-5.0); Alkaline Phosphatase * 128 U/L (50-170); Anion Gap 39.3 mmol/L (6.8-13.8); BUN/Creatinine Ratio 14.6 (9.0-21.6); Bilirubin, Total 0.3 mg/dL (0.0-1.1); Blood Urea Nitrogen 46 mg/dL (6-23); Ca. Corrected For Albumin 9.8 mg/dL (8.4-10.2); Calcium * 10.3 mg/dL (7.9-10.9); Carbon Dioxide 13.9 mmol/L (24-32.6); Chloride 103 mmol/L (97-106); Glucose * 75 mg/dL (70-110); Potassium 5.2 mmol/L (3.4-4.6); Sodium 151 mmol/L (132-142); Total Protein 8.6 gm/dL (6.2-8.2)
[2018-07-06 11:37] LABS: Band 11 % (0-2.0); Lymphocyte 8 % (20-51); Monocyte 14 % (0-9); Neutrophil 67 % (42-75); Neutrophil # 20.8 K/mm3 (1.3-6.0)
[2018-07-06 11:40] LABS: Platelet Estimate Normal (NORMAL); RBC Morphology Normal (NORMAL)
[2018-07-06 11:43] LABS: ALT 61 U/L (19-67)
[2018-07-06] MEDS ORDERED: cefTRIAXone SODIUM 1,000 MG/100 ML BAG IV ONE (11:48)
[2018-07-06] MEDS ORDERED: MIDAZOLAM HCL/PF 5 MG/ML VIAL ONE (11:52)
--- NOTE | 2018-07-06 12:25 | ERNOTE ---
Neuro HPI ER Record Date of Service: 07/06/18 Presenting Symptoms: other Time Seen by Provider: 07/06/18 10:44 Source: family, EMS, care home records Immunizations: IMMUNIZATION HX Immunizations Up to Date Yes History of Influenza Vaccine Yes Hx Pneumococcal Vaccination No Allergies/Adverse Reactions: Allergies Allergy/AdvReac Type Severity Reaction Status Date / Time plasma protein fraction Allergy Verified 06/19/18 14:20 [From Plasmanate] Home Medications: HOME MEDICATIONS Divalproex Sodium [Depakote ER] 500 mg PO BID 06/16/12 [Last Taken 09/23/14 07:00] Alendronate Sodium [Fosamax] 70 mg PO MO 09/25/13 [Last Taken 09/21/14 07:00] Divalproex Sodium [Depakote ER] 250 mg PO DAILY 09/25/13 [Last Taken 10/16/13] Neomycin/Bacitracin/Polymyxinb [Triple Antibiotic Ointment] 1 ea TP PRN PRN 09/25/13 [Last Taken 10/16/13] Ondansetron HCl [Zofran] 4 mg PO Q8H PRN 11/20/16 [Last Taken Unknown] guaiFENesin/DEXTROMETHORPHAN [Robitussin-Dm] 10 ml PO Q4H 11/20/16 [Last Taken Unknown] lamotrigine 200 mg tablet 200 mg PO BID #180 tab 01/03/18 [Last Taken Unknown] acetaminophen 325 mg tablet 325 mg PO Q4H PRN #180 tab 01/14/18 [Last Taken Unknown] polyethylene glycol 3350 17 gram oral powder packet 17 g PO DAILY PRN ea 02/13/18 [Last Taken Unknown] sertraline 50 mg tablet 50 mg PO DAILY 02/13/18 [Last Taken Unknown] ergocalciferol (vitamin D2) 50,000 unit capsule 50,000 unit PO QMONTH #1 cap 05/29/18 [Last Taken Unknown] oxcarbazepine 600 mg tablet 600 mg PO BID #62 tab 05/29/18 [Last Taken Unknown] trazodone 150 mg tablet 75 mg PO DAILY #45 tab 05/31/18 [Last Taken Unknown] Fluticasone Propionate [Flonase Allergy Relief] 9.9 ml NS DAILY 06/02/18 [Last Taken Unknown] Lamotrigine [Lamictal] 50 mg PO BID 06/02/18 [Last Taken Unknown] Lorazepam [Ativan] 2 mg PO TID 06/02/18 [Last Taken Unknown] Perampanel [Fycompa] 4 mg PO BID 06/02/18 [Last Taken Unknown] chlorhexidine gluconate 0.12 % mouthwash 15 ml BC BID 06/20/18 [Last Taken Unknown] hydroxyzine pamoate 50 mg capsule 50 mg PO HS PRN 06/20/18 [Last Taken Unknown] lorazepam 1 mg tablet 1 mg PO TID PRN tab 06/20/18 [Last Taken Unknown] calcium carbonate 500 mg-vitamin D3 200 unit-vitamin K2 90 mcg tablet 1 tab PO TID #270 tab 07/03/18 [Last Taken Unknown] fexofenadine 180 mg tablet See Rx Instructions .ROUTE .COMPLEX #90 tab 07/03/18 [Last Taken Unknown] - History of Present Illness Narrative: patient presents by ems with c/o of seizures. long hx of cp,and seizure disorder, has seized multiple times Onset: cannot confirm onset Severity: severe - Character of Deficits New weakness: Present: general (diffuse) Additional Deficits: Present: weakness, bed-ridden Baseline Cognition: Present: poor alertness Baseline Gait: Present: unable to walk Associated Symptoms: Reports: fever/chills, altered mental status, disoriented, confused Prior Treament: Reports: recently seen, treated by physician Review of Systems - Narrative Narrative: hx obtained by ems, patient unable to give hx - Review of Systems Constitutional: Present: See HPI, fatigue, malaise EYE: Present: no symptoms reported ENT: Present: no symptoms reported Respiratory: Present: shortness of breath, cough, orthopnea, wheezing Cardiology: Present: no symptoms reported Gastrointestinal/Abdominal: Present: no symptoms reported Genitourinary: Present: no symptoms reported Musculoskeletal: Present: no symptoms reported Neurological: Present: pre-existing deficit, other - multiple seizures Endocrine: Present: no symptoms reported Medical History (Last Reviewed 07/01/18 @ 18:11 by Jeannette Navarrete RN) Autism Bilateral club feet Dysphagia Onset Date: Unknown Eczema Onset Date: Unknown Hyperopia Onset Date: Unknown Metatarsal fracture Onset Date: ~2003 Spiral left 5th Non-verbal learning disorder Osteoporosis Onset Date: Unknown Profound mental retardation Scoliosis Onset Date: Unknown Surgical History: Surgical History (Last Reviewed 07/01/18 @ 18:11 by Jeannette Navarrete RN) History of dental surgery 1996 Hx of nasal septoplasty 1992 Hx of tonsillectomy Onset Date: Unknown Family History: Family History (Last Reviewed 07/01/18 @ 18:11 by Jeannette Navarrete RN) Family/Other Asthma Kidney disease Lung disease Seizure disorder Social History: Preferred Language Malagasy Smoking Status Never smoker Abuse History No History of abuse Psych History Hx of Anxiety,Hx of Depression,Currently on Meds Alcohol Use none Drug Use none (Last Updated 06/26/18 @ 11:49 by Dontrell Vyas MD) No Social History Section defined Physical Exam - Physical Exam General Appearance: Present: severe distress, lethargic Head Exam: Present: other - healing laceration to right eyebrow Eye Exam: Normal inspection: bilateral, PERRL: bilateral, EOMI: bilateral Ears, Nose, Throat: Present: other - multiple dental caries poor dental hygiene Respiratory: Present: respiratory distress, accessory muscle use, decreased breath sounds, crackles, rales, rhonchi, wheezing Cardiovascular/Chest: Present: tachycardia Gastrointestinal/Abdominal: Present: normal bowel sounds, nontender, nondistended, soft Extremity Exam: Present: normal except - - upper and lower extrtemity contract ures long standing findings Neurological Exam: Present: motor weakness, disoriented to person, disoriented to time, disoriented to place, disoriented to situation Rebecca Coma Scale - Assess Eye Opening: None Motor: Withdraws to Pain Verbal: Incomprehensible - Total Coma Scale Total: 7 Progress - Date and Time Seen: Date and Time: 07/06/18 12:20 discussed at [facility] with patients mother and guardian, family elects to forgo intubation and extra ordinary measures to maintain patient, case discussed with dr perez, patient accepted for admission with comfort care - Results and Orders Patient's Lab Results:: I have reviewed the patient's lab results. - Vital Signs Patient's Vital Signs:: I have reviewed the patient's vital signs. Vital Signs: Vital Signs 07/06/18 10:45 07/06/18 10:59 07/06/18 11:15 Temperature 35.9 C L Pulse Rate 104 H 112 H 111 H Respiratory Rate 33 H 37 H 33 H Blood Pressure 112/56 108/71 O2 Sat by Pulse Oximetry 94 87 L 07/06/18 11:25 Temperature Pulse Rate 111 H Respiratory Rate 29 H Blood Pressure O2 Sat by Pulse Oximetry - EKG EKG: supraventricular tachycardia EKG read: Interp. by me - X-Ray X-Ray #1 X-Ray: chest - aspiration pneumonia Interpretation: Interp. by me - Progress/Reassessment Chief Complaint: Seizure Activity Progress:: Unchanged - Transfer of Care Expected Disposition: Admit Plan - Plan Plan: to admit to hospital, dnr status comfort care Departure Clinical Impression: Seizures, generalized convulsive, Aspiration into respiratory tract - Departure Disposition: Still a patient Condition: Critical Referrals: Dontrell Vyas MD [Primary Care Provider] -
[2018-07-06] MEDS ORDERED: ALBUTEROL SULFATE 2.5 MG/0.5 ML VIAL.NEB IH PRN (12:30)
[2018-07-06] MEDS ORDERED: HALOPERIDOL LACTATE 5 MG/ML VIAL IV PRN (12:51)
[2018-07-06] MEDS ORDERED: PROCHLORPERAZINE EDISYLATE 5 MG/ML VIAL IV PRN (12:51)
[2018-07-06] MEDS ORDERED: POLYVINYL ALCOHOL 150 DROP BTL EACHEYE PRN (12:51)
[2018-07-06] MEDS ORDERED: SCOPOLAMINE HYDROBROMIDE 1.5 MG PATC TD SCH (13:00)
[2018-07-06] MEDS: MORPHINE SULFATE 2 MG/ML DISP.SYRIN IV PRN ×6 (14:47→23:20)
[2018-07-06] MEDS: LORazepam 2 MG/ML DISP.SYRIN IV PRN ×5 (14:47→23:16)
[2018-07-06 15:13] VITALS: BP 138/52
--- NOTE | 2018-07-06 15:18 | HP ---
Chief Complaint - Chief Complaint Date of Service: 07/06/18 Time of Service: 15:06 Chief Complaint: seizure History of Present Illness: This is a 38-year-old male with a past medical history of seizure disorder, cerebral palsy, mental retardation who presents to the emergency department with seizures. History is obtained from the patient's guardian, mother, insecticide supervisor at his assisted living facility. While the patient was being helped to pull up his pants today by staff at the facility, he began to seize. He had multiple seizures and was brought to the emergency department. In the emergency department he continued to seize and received several doses of Ativan with good result. Patient was found to be hypoxic with oxygen saturation of 88%. He was started on oxygen supplementation and required 10 L via facemask to maintain his oxygen saturations in the 90s. The emergency room physician was considering intubating the patient however the patient already had a status of DO NOT RESUSCITATE. In addition the patient was found to have leukocytosis in the 30s, elevated lactic acid, and multiple other electrolyte derangements. After discussion with the family it was determined that patient should be managed as comfort care. Medical History (Last Reviewed 07/06/18 @ 13:43 by Kelli Menezes RN) Autism Bilateral club feet Dysphagia Onset Date: Unknown Eczema Onset Date: Unknown Hyperopia Onset Date: Unknown Metatarsal fracture Onset Date: ~2003 Spiral left 5th Non-verbal learning disorder Osteoporosis Onset Date: Unknown Profound mental retardation Scoliosis Onset Date: Unknown Surgical History: Surgical History (Last Reviewed 07/06/18 @ 13:43 by Kelli Menezes RN) History of dental surgery 1996 Hx of nasal septoplasty 1992 Hx of tonsillectomy Onset Date: Unknown Family History: Family History (Last Reviewed 07/06/18 @ 13:44 by Kelli Menezes RN) Family/Other Asthma Kidney disease Lung disease Seizure disorder Social History: Patient Lives/Resources [facility] care Utilized Preferred Language Honduran Do you have any bahai or No cultural preference? Smoking Status Never smoker Have you smoked in the past 12 No months Abuse History No History of abuse Psych History Hx of Anxiety,Hx of Depression,Currently on Meds Alcohol Use none Drug Use none (Last Updated 06/26/18 @ 11:49 by Dontrell Vyas MD) No Social History Section defined Review Of Systems (GEN) - Review of Systems Respiratory: Present: Shortness of Breath Neurological: Present: Seizure Immunizations: IMMUNIZATION HX Immunizations Up to Date Yes History of Influenza Vaccine Yes Hx Pneumococcal Vaccination No Allergies/Adverse Reactions: Allergies Allergy/AdvReac Type Severity Reaction Status Date / Time plasma protein fraction Allergy Verified 07/06/18 14:22 [From Plasmanate] Home Medications: HOME MEDICATIONS Divalproex Sodium [Depakote ER] 500 mg PO BID 06/16/12 [Last Taken 09/23/14 07:00] Alendronate Sodium [Fosamax] 70 mg PO MO 09/25/13 [Last Taken 09/21/14 07:00] Neomycin/Bacitracin/Polymyxinb [Triple Antibiotic Ointment] 1 ea TP PRN PRN 09/25/13 [Last Taken 10/16/13] Ondansetron HCl [Zofran] 4 mg PO Q8H PRN 11/20/16 [Last Taken Unknown] guaiFENesin/DEXTROMETHORPHAN [Robitussin-Dm] 10 ml PO Q4H PRN 11/20/16 [Last Taken Unknown] polyethylene glycol 3350 17 gram oral powder packet 17 g PO DAILY PRN ea 02/13/18 [Last Taken Unknown] sertraline 50 mg tablet 50 mg PO DAILY 02/13/18 [Last Taken Unknown] ergocalciferol (vitamin D2) 50,000 unit capsule 50,000 unit PO QMONTH #1 cap 05/29/18 [Last Taken Unknown] oxcarbazepine 600 mg tablet 600 mg PO BID #62 tab 05/29/18 [Last Taken Unknown] trazodone 150 mg tablet 75 mg PO DAILY #45 tab 05/31/18 [Last Taken Unknown] Lorazepam [Ativan] 1 mg PO TID PRN 06/02/18 [Last Taken Unknown] Perampanel [Fycompa] 4 mg PO BID 06/02/18 [Last Taken Unknown] chlorhexidine gluconate 0.12 % mouthwash 15 ml BC BID 06/20/18 [Last Taken Unknown] hydroxyzine pamoate 50 mg capsule 50 mg PO HS PRN 06/20/18 [Last Taken Unknown] lorazepam 1 mg tablet 2 mg PO TID PRN tab 06/20/18 [Last Taken Unknown] calcium carbonate 500 mg-vitamin D3 200 unit-vitamin K2 90 mcg tablet 1 tab PO TID #270 tab 07/03/18 [Last Taken Unknown] Acetaminophen [Tylenol] 650 mg PO Q4H PRN 07/06/18 [Last Taken Unknown] Benzoyl Peroxide 340.2 gm TOPICAL DAILY 07/06/18 [Last Taken Unknown] Fexofenadine HCl 1 tab PO DAILY 07/06/18 [Last Taken Unknown] Menthol [Biofreeze] 1 appl TOPICAL Q4H PRN 07/06/18 [Last Taken Unknown] lamoTRIgine [Lamotrigine] 300 mg PO BID 07/06/18 [Last Taken Unknown] Exam - Exam Vital Signs: Vital Signs - Last Taken Temp 36.6 C 07/06/18 12:49 Pulse 117 H 07/06/18 14:21 Resp 28 H 07/06/18 14:21 BP 105/66 07/06/18 14:21 Pulse Ox 97 07/06/18 14:21 Constitutional: Present: Somnolent Neck: Present: non-tender, supple, trachea midline. Absent: lymphadenopathy (R), lymphadenopathy (L) Respiratory: Present: decreased breath sounds, accessory muscle use, rhonchi Cardiovascular/Chest: Present: normal peripheral pulses, no murmur, tachycardia, other Peripheral Pulses: dorsalis-pedis (R): 2+, dorsalis-pedis (L): 2+ Abdomen: Present: Normal bowel sounds, soft, nontender Extremity: Present: no pedal edema Skin Exam: Present: normal color, cool/dry Diagnostic Studies: Abnormal Lab Results 07/06/18 07/06/18 07/06/18 Range/Units 11:00 11:00 11:00 WBC 31.1 H (4.0-10.5) K/mm3 RBC 4.61 L (4.7-6.0) M/mm3 MCV 103.9 H (78-100) fl MCH 34.3 H (27-31) pg Immature Gran % (Auto) 0.70 H (0.001-0.429) % Immature Gran # (Auto) 0.21 H (0.000-0.0310) K/mm3 Neutrophils % 85.6 H (42-75.0) % Band Neuts % (Manual) 11 H (0-2.0) % Lymphocytes % 5.9 L (20-51) % Lymphocytes % (Manual) 8 L (20-51) % Monocytes % (Manual) 14 H (0-9) % Neutrophils # 26.7 H (1.3-6.0) K/mm3 Neutrophils # (Manual) 20.8 H (1.3-6.0) K/mm3 Monocytes # 2.3 H (0.0-1.0) k/mm3 Monocytes # (Manual) 4.4 H (0.0-1.0) k/mm3 Sodium 151 H (132-142) mmol/L Plasma Sodium 151 H (130-142) mmol/L Potassium 5.2 H (3.4-4.6) mmol/L Carbon Dioxide 13.9 L (24-32.6) mmol/L Anion Gap 39.3 H (6.8-13.8) mmol/L BUN 46 H D (6-23) mg/dL Creatinine 3.14 H D (0.4-1.4) mg/dL Est GFR (Non-Af Amer) 24 L D (60-130) mL/min Lactic Acid, Venous 11.4 H* (0.4-2.0) mmol/L AST 183 H (0-48) U/L Total Protein 8.6 H (6.2-8.2) gm/dL Valproic Acid Less than 3.0 L (50.0-100.0) mcg/mL Laboratory Results WBC 31.1 K/mm3 (4.0-10.5) H 07/06/18 11:00 RBC 4.61 M/mm3 (4.7-6.0) L 07/06/18 11:00 Hgb 15.8 gm/dL (13.5-18.0) 07/06/18 11:00 Hct 47.9 % (42.0-52.0) 07/06/18 11:00 MCV 103.9 fl (78-100) H 07/06/18 11:00 MCH 34.3 pg (27-31) H 07/06/18 11:00 MCHC 33.0 g/dl (32-36) 07/06/18 11:00 RDW 13.1 % (11.5-14.0) 07/06/18 11:00 Plt Count 402 K/mm3 (150-450) 07/06/18 11:00 MPV 10.1 fl (8-11.3) 07/06/18 11:00 Immature Gran % (Auto) 0.70 % (0.001-0.429) H 07/06/18 11:00 Immature Gran # (Auto) 0.21 K/mm3 (0.000-0.0310) H 07/06/18 11:00 Neutrophils % 85.6 % (42-75.0) H 07/06/18 11:00 Neutrophils % (Manual) 67 % (42-75) 07/06/18 11:00 Band Neuts % (Manual) 11 % (0-2.0) H 07/06/18 11:00 Lymphocytes % 5.9 % (20-51) L 07/06/18 11:00 Lymphocytes % (Manual) 8 % (20-51) L 07/06/18 11:00 Monocytes % 7.5 % (0.0-9) 07/06/18 11:00 Monocytes % (Manual) 14 % (0-9) H 07/06/18 11:00 Eosinophils % 0.0 % (0.0-3.0) 07/06/18 11:00 Basophils % 0.3 % (0.0-1.0) 07/06/18 11:00 Nucleated RBC % 0.0 k/mm3 (0-1) 07/06/18 11:00 Neutrophils # 26.7 K/mm3 (1.3-6.0) H 07/06/18 11:00 Neutrophils # (Manual) 20.8 K/mm3 (1.3-6.0) H 07/06/18 11:00 Lymphocytes # 1.85 k/mm3 (1.5-3.5) 07/06/18 11:00 Lymphocytes # (Manual) 2.5 k/mm3 (1.5-3.5) 07/06/18 11:00 Monocytes # 2.3 k/mm3 (0.0-1.0) H 07/06/18 11:00 Monocytes # (Manual) 4.4 k/mm3 (0.0-1.0) H 07/06/18 11:00 Eosinophils # 0.0 k/mm3 (0.0-0.7) 07/06/18 11:00 Absolute Basophils 0.1 k/mm3 (0.0-0.1) 07/06/18 11:00 Platelet Estimate Normal (NORMAL) 07/06/18 11:00 RBC Morphology Normal (NORMAL) 07/06/18 11:00 Sodium 151 mmol/L (132-142) H 07/06/18 11:00 Plasma Sodium 151 mmol/L (130-142) H 07/06/18 11:00 Potassium 5.2 mmol/L (3.4-4.6) H 07/06/18 11:00 Chloride 103 mmol/L (97-106) 07/06/18 11:00 Carbon Dioxide 13.9 mmol/L (24-32.6) L 07/06/18 11:00 Anion Gap 39.3 mmol/L (6.8-13.8) H 07/06/18 11:00 BUN 46 mg/dL (6-23) H D 07/06/18 11:00 Creatinine 3.14 mg/dL (0.4-1.4) H D 07/06/18 11:00 Est GFR (Non-Af Amer) 24 mL/min (60-130) L D 07/06/18 11:00 BUN/Creatinine Ratio 14.6 (9.0-21.6) 07/06/18 11:00 Random Glucose 75 mg/dL (70-110) 07/06/18 11:00 Lactic Acid, Venous 11.4 mmol/L (0.4-2.0) H* 07/06/18 11:00 Calcium 10.3 mg/dL (7.9-10.9) 07/06/18 11:00 Calcium Adj for Albumin 9.8 mg/dL (8.4-10.2) 07/06/18 11:00 Total Bilirubin 0.3 mg/dL (0.0-1.1) 07/06/18 11:00 AST 183 U/L (0-48) H 07/06/18 11:00 ALT 61 U/L (19-67) 07/06/18 11:00 Alkaline Phosphatase 128 U/L (50-170) 07/06/18 11:00 Total Protein 8.6 gm/dL (6.2-8.2) H 07/06/18 11:00 Albumin 4.2 gm/dl (3.4-5.0) 07/06/18 11:00 Valproic Acid Less than 3.0 mcg/mL (50.0-100.0) L 07/06/18 11:00 Assessment/Plan - Assessment/Plan (1) Comfort measures only status Assessment: The mother and guardians wishes the patient has been admitted for comfort care. Comfort care protocol has been initiated. Problem: Acute
[2018-07-06] MEDS: HYDROPHILIC OINTMENT 454 APPL JAR TP SCH (21:21)
[2018-07-07] MEDS: MORPHINE SULFATE 2 MG/ML DISP.SYRIN IV PRN ×9 (01:16→22:16)
[2018-07-07] MEDS: LORazepam 2 MG/ML DISP.SYRIN IV PRN ×10 (01:18→23:23)
[2018-07-07] MEDS ORDERED: LORazepam 2 MG/ML DISP.SYRIN IV ONE (02:15)
[2018-07-07] MEDS: HYDROPHILIC OINTMENT 454 APPL JAR TP SCH ×2 (08:02→20:45)
[2018-07-07] MEDS: ACETAMINOPHEN 325 MG SUPP.RECT RC PRN ×4 (10:51→23:26)
--- NOTE | 2018-07-07 13:01 | PN ---
Subjective - Date and Time Seen Date: 07/07/18 Time: 12:55 Subjective Narrative: Patient is unresponsive to verbal and tactile stimuli. Objective Objective Narrative: Unable to obtain review of systems due to the patient's mental status. - Vitals Vitals: Last Vital Signs Temp 37.3 C 07/06/18 15:11 Pulse 125 H 07/06/18 15:11 Resp 24 H 07/06/18 15:11 BP 138/52 07/06/18 15:11 Pulse Ox 100 07/06/18 15:11 - Exam Constitutional: Present: Somnolent Neck: Present: non-tender, supple. Absent: lymphadenopathy (R), lymphadenopathy (L) Respiratory: Present: decreased breath sounds, accessory muscle use, rhonchi Cardiovascular/Chest: Present: normal peripheral pulses, no murmur, tachycardia Abdomen: Present: Normal bowel sounds, soft, nontender Extremity: Present: no pedal edema Skin Exam: Present: normal color, warm/dry Assessment/Plan - Problems/Diagnosis (1) Comfort measures only status Problem: Acute Narrative: Due to the patient's poor prognostic outcome of family (patient's mother and guardian, who are co-guardians) have determined to place the patient on comfort care. Patient was noted to have a few episodes of seizure overnight. These resolved with Ativan. The patient is a DNR and when he developed respiratory distress in the emergency department the guardians decided that intubation would not be in his best interest. Continue with comfort measures including Ativan and morphine as needed. Support was given to the patient's mother and sister who are at the patient's bedside.
[2018-07-08] MEDS: MORPHINE SULFATE 2 MG/ML DISP.SYRIN IV PRN ×4 (00:22→11:02)
[2018-07-08] MEDS: LORazepam 2 MG/ML DISP.SYRIN IV PRN ×6 (01:38→12:53)
[2018-07-08] MEDS: ACETAMINOPHEN 325 MG SUPP.RECT RC PRN ×2 (03:38→08:01)
[2018-07-08] MEDS ORDERED: CODEINE PHOSPHATE/GUAIFENESIN 5 ML UDC PO PRN (08:30)
[2018-07-08] MEDS ORDERED: MORPHINE SULFATE 4 MG/ML SYRG IV PRN (08:30)
[2018-07-08] MEDS ORDERED: ATROPINE SULFATE 50 DROP BTL SL PRN (08:30)
[2018-07-08] MEDS ORDERED: BISACODYL 10 MG SUPP.RECT RC PRN (08:30)
[2018-07-08] MEDS ORDERED: ONDANSETRON HCL/PF 2 MG/ML VIAL IV PRN (08:30)
--- NOTE | 2018-07-08 08:30 | PN ---
Subjective - Date and Time Seen Date: 07/08/18 Time: 08:20 Subjective Narrative: patient is unresponsive to name call and sternal pressure. doscussed with the patient's mother. she is wants to continue with comfort measures. Consider Hospice. Objective - Review of Systems Misc: All systems neg except as marked - Unobtainable due to present mental state - Vitals Vitals: Last Vital Signs Temp 37.3 C 07/06/18 15:11 Pulse 125 H 07/06/18 15:11 Resp 24 H 07/06/18 15:11 BP 138/52 07/06/18 15:11 Pulse Ox 100 07/06/18 15:11 - Exam Constitutional: Present: Other - unresponsive Respiratory: Present: decreased breath sounds, rhonchi Cardiovascular/Chest: Present: regular rate, rhythm, tachycardia Abdomen: Present: soft, nondistended Extremity: Present: pedal edema Neurologic: Present: other - unresponsve to sternal pressure Assessment/Plan - Problems/Diagnosis (1) Acute renal failure Problem: Acute Narrative: renal vs prerenal. family just wants comfort measures. diagnostic and therapeutic measures not initiated (2) Electrolyte imbalance Problem: Acute Narrative: hypernatremia and hyperkalemia due to ARF. for comfort measures only. (3) Leukocytosis Problem: Acute Narrative: infection vs inflammation from reaction to sizures. diagnostic and therapeutic not intitiatd as family wants only comfort measures. (4) Aspiration into respiratory tract Problem: Acute (5) Comfort measures only status Problem: Acute (6) Seizures, generalized convulsive Problem: Acute (7) Mental retardation Problem: Chronic
[2018-07-08] MEDS: HYDROPHILIC OINTMENT 454 APPL JAR TP SCH (09:52)
--- NOTE | 2018-07-08 14:38 | DS ---
(1) Acute renal failure Problem: Acute (2) Electrolyte imbalance Problem: Acute (3) Leukocytosis Problem: Acute (4) Aspiration into respiratory tract Problem: Acute (5) Comfort measures only status Problem: Acute (6) Seizures, generalized convulsive Problem: Acute (7) Mental retardation Problem: Chronic Description of Stay: Frank Tuttle, is a 38-year-old male with a past medical history of seizure disorder, cerebral palsy, mental retardation who was admitted on 07/07/2018 for seizures. History was obtained from the patient's guardian, mother, supervisor harvesting at his assisted living facility. While the patient was being helped to pull up his pants today by staff at the facility, he began to seize. He had multiple seizures and was brought to the emergency department. In the emergency department he continued to seize and received several doses of Ativan with good result. Patient was found to be hypoxic with oxygen saturation of 88%. He was started on oxygen supplementation and required 10 L via facemask to maintain his oxygen saturations in the 90s. The emergency room physician was considering intubating the patient however the patient already had a status of DO NOT RESUSCITATE. In addition the patient was found to have leukocytosis in the 30s, elevated lactic acid, and multiple other electrolyte derangements. After discussion with the family it was determined that patient should be managed as comfort care. No diagnostic or therapeutic intervention were started as family did not want to be aggressive. He has remained with altered mental status and the family has decided to make him hospice care. Procedures Performed: none Results and Findings: Pending Mircobiology Results 07/06/18 11:17 Blood Blood Culture - Preliminary NO GROWTH AFTER 48 HOURS 07/06/18 11:00 Blood Blood Culture - Preliminary NO GROWTH AFTER 48 HOURS Lab Pending Results 07/06/18 11:00: WBC 31.1 H, RBC 4.61 L, Hgb 15.8, Hct 47.9, MCV 103.9 H, MCH 34.3 H, MCHC 33.0, RDW 13.1, Plt Count 402, MPV 10.1, Immature Gran % (Auto) 0.70 H, Immature Gran # (Auto) 0.21 H, Neutrophils % 85.6 H, Neutrophils % (Manual) 67, Band Neuts % (Manual) 11 H, Lymphocytes % 5.9 L, Lymphocytes % (Manual) 8 L, Monocytes % 7.5, Monocytes % (Manual) 14 H, Eosinophils % 0.0, Basophils % 0.3, Nucleated RBC % 0.0, Neutrophils # 26.7 H, Neutrophils # (Manual) 20.8 H, Lymphocytes # 1.85, Lymphocytes # (Manual) 2.5, Monocytes # 2.3 H, Monocytes # (Manual) 4.4 H, Eosinophils # 0.0, Absolute Basophils 0.1, Platelet Estimate Normal, RBC Morphology Normal 07/06/18 11:00: Sodium 151 H, Plasma Sodium 151 H, Potassium 5.2 H, Chloride 103, Carbon Dioxide 13.9 L, Anion Gap 39.3 H, BUN 46 H D, Creatinine 3.14 H D, Est GFR (Non-Af Amer) 24 L D, BUN/Creatinine Ratio 14.6, Random Glucose 75, Calcium 10.3, Calcium Adj for Albumin 9.8, Total Bilirubin 0.3, AST 183 H, ALT 61, Alkaline Phosphatase 128, Total Protein 8.6 H, Albumin 4.2, Valproic Acid Less than 3.0 L 07/06/18 11:00: Lactic Acid, Venous 11.4 H* Discharge Location: [facility] Disposition: Hospice Medical Facility Home Health Agency: [facility] Condition: Critical Discharge Activity: Activity as tolerated Discharge Diet: NPO Referrals: Dontrell Vyas MD [Primary Care Provider] - Additional Patient Instructions (free text): -Please make TCM appointment unless longterm discharge. Thank you! Renee @ [phone]. Will transfer to hospice care. Complete Home Medications List: Complete Home Medication List: Acetaminophen [Tylenol Suppository] 325 mg RC Q4H PRN supp.rect 07/08/18 Albuterol Sulfate [Albuterol Sulfate 2.5 MG/0.5ML] 2.5 mg IH Q4H PRN vial.neb 07/08/18 Atropine Sulfate [Isopto Atropine 1%] 2 drop SL Q2H PRN btl 07/08/18 Bisacodyl [Dulcolax Suppository] 10 mg RC PRN PRN supp.rect 07/08/18 Codeine Phosphate/Guaifenesin [Guiatuss AC Syrup] 10 ml PO Q4H PRN udc 07/08/18 Haloperidol Lactate [Haldol] 0.5 mg IV Q6H PRN vial 07/08/18 Hydrophilic Ointment [Aquaphilic Ointment] 1 appl TP BID jar 07/08/18 LORazepam [Ativan] 2 mg IV Q2H PRN disp.syrin 07/08/18 Morphine Sulfate 4 mg IV Q15M PRN disp.syrin 07/08/18 Ondansetron HCl/Pf [Zofran] 4 mg IV Q4H PRN vial 07/08/18 Polyvinyl Alcohol [Artificial Tears] 2 drop EACHEYE PRN PRN btl 07/08/18 Prochlorperazine Edisylate [Compazine] 10 mg IV Q6H PRN vial 07/08/18 Scopolamine [Transderm-Scop] 1.5 mg TD Q72H patch.td72 07/08/18
== END 2018-07-08 14:54 | disposition hospice, home (50) | DRG 101 ==
LOC: ER 10:36 → MS 12:19
PROVIDERS: ADMIT Family Medicine; ATTEND Internal Medicine
CPT/HCPCS: 36415; 71010; 71045; 80053; 80164; 83605; 85025; 87040; 94640; 94664; 96365; 96367; 96375; 96376; 99285

== ENCOUNTER 2018-07-08 14:56 | Inpatient (IN) ==
--- NOTE | 2018-07-08 16:00 | HP ---
Chief Complaint - Chief Complaint Date of Service: 07/08/18 Time of Service: 15:59 Chief Complaint: hospice care History of Present Illness: Frank Tuttle, is a 38-year-old male with a past medical history of seizure disorder, cerebral palsy, mental retardation who was admitted on 07/07/2018 for seizures. History was obtained from the patient's guardian, mother, supervisor livestock yard at his assisted living facility. While the patient was being helped to pull up his pants on the renetta of admission by staff at the facility, he began to seize. He had multiple seizures and was brought to the emergency department. In the emergency department he continued to seize and received several doses of Ativan with good result. Patient was found to be hypoxic with oxygen saturation of 88%. He was started on oxygen supplementation and required 10 L via facemask to maintain his oxygen saturations in the 90s. The emergency room physician was considering intubating the patient however the patient already had a status of DO NOT RESUSCITATE. In addition the patient was found to have leukocytosis in the 30s, elevated lactic acid, and multiple other electrolyte derangements. After discussion with the family it was determined that patient should be man aged as comfort care. No diagnostic or therapeutic intervention were started as family did not want to be aggressive. He has remained with altered mental status and the family has decided to make him hospice care. [facility] has agreed to take him. Medical History (Last Reviewed 07/08/18 @ 15:42 by Stephania Blum RN) Autism Bilateral club feet Dysphagia Onset Date: Unknown Eczema Onset Date: Unknown Hyperopia Onset Date: Unknown Metatarsal fracture Onset Date: ~2003 Spiral left 5th Non-verbal learning disorder Osteoporosis Onset Date: Unknown Profound mental retardation Scoliosis Onset Date: Unknown Surgical History: Surgical History (Last Reviewed 07/08/18 @ 15:42 by Stephania Blum RN) History of dental surgery 1996 Hx of nasal septoplasty 1992 Hx of tonsillectomy Onset Date: Unknown Family History: Family History (Last Reviewed 07/08/18 @ 15:42 by Stephania Blum RN) Family/Other Asthma Kidney disease Lung disease Seizure disorder Social History: Preferred Language Maori Do you have any shinto or No cultural preference? Smoking Status Never smoker Have you smoked in the past 12 No months Do you dip or chew tobacco No Abuse History No History of abuse Psych History Hx of Anxiety,Hx of Depression,Currently on Meds (Last Updated 06/26/18 @ 11:49 by Dontrell Vyas MD) No Social History Section defined Review Of Systems (GEN) - Review of Systems Additional Comments: Unobtainable due to altered mental status Immunizations: IMMUNIZATION HX Immunizations Up to Date Yes History of Influenza Vaccine Yes Hx Pneumococcal Vaccination No Allergies/Adverse Reactions: Allergies Allergy/AdvReac Type Severity Reaction Status Date / Time plasma protein fraction Allergy Verified 07/06/18 14:22 [From Plasmanate] Home Medications: HOME MEDICATIONS Acetaminophen [Tylenol Suppository] 325 mg RC Q4H PRN supp.rect 07/08/18 [Last Taken Unknown] Albuterol Sulfate [Albuterol Sulfate 2.5 MG/0.5ML] 2.5 mg INHALATION Q4H PRN vial.neb 07/08/18 [Last Taken Unknown] Atropine Sulfate [Isopto Atropine 1%] 2 drp SUBLINGUAL Q2H PRN btl 07/08/18 [Last Taken Unknown] Bisacodyl [Dulcolax Suppository] 10 mg RC PRN PRN supp.rect 07/08/18 [Last Taken Unknown] Codeine Phosphate/Guaifenesin [Guiatuss AC Syrup] 10 ml PO Q4H PRN udc 07/08/18 [Last Taken Unknown] Haloperidol Lactate [Haldol] 0.5 mg IV Q6H PRN vial 07/08/18 [Last Taken Unknown] Hydrophilic Ointment [Aquaphilic Ointment] 1 appl TOPICAL BID jar 07/08/18 [Last Taken Unknown] LORazepam [Ativan] 2 mg IV Q2H PRN disp.syrin 07/08/18 [Last Taken Unknown] Morphine Sulfate 4 mg IV Q15M PRN disp.syrin 07/08/18 [Last Taken Unknown] Ondansetron HCl/Pf [Zofran] 4 mg IV Q4H PRN vial 07/08/18 [Last Taken Unknown] Polyvinyl Alcohol [Artificial Tears] 2 drp EACHEYE PRN PRN btl 07/08/18 [Last Taken Unknown] Prochlorperazine Edisylate [Compazine] 10 mg IV Q6H PRN vial 07/08/18 [Last Taken Unknown] Scopolamine [Transderm-Scop] 1.5 mg TD Q72H patch.td72 07/08/18 [Last Taken Unknown] Exam - Exam Constitutional: Present: Obtunded Neck: Present: supple Respiratory: Present: decreased breath sounds, crackles, rhonchi Cardiovascular/Chest: Present: regular rate, rhythm, no JVD, no murmur Abdomen: Present: soft, nontender, nondistended, hypoactive Extremity: Present: no pedal edema Assessment/Plan - Narrative Narrative: Will continue with comfort measures and hospice care. - Assessment/Plan (1) Altered mental state Problem: Acute (2) Seizures, generalized convulsive Problem: Acute (3) Aspiration into respiratory tract Problem: Acute (4) Leukocytosis Problem: Acute (5) Fever and chills Problem: Acute (6) Acute renal failure Problem: Acute (7) Electrolyte imbalance Problem: Acute (8) Mental retardation Problem: Chronic (9) Seizure disorder Problem: Chronic
[2018-07-08] MEDS ORDERED: ONDANSETRON HCL/PF 2 MG/ML VIAL IV PRN (16:16)
[2018-07-08] MEDS ORDERED: CODEINE PHOSPHATE/GUAIFENESIN 5 ML UDC PO PRN (16:16)
[2018-07-08] MEDS ORDERED: ATROPINE SULFATE 50 DROP BTL SL PRN (16:16)
[2018-07-08] MEDS ORDERED: POLYVINYL ALCOHOL 150 DROP BTL EACHEYE PRN (16:16)
[2018-07-08] MEDS ORDERED: BISACODYL 10 MG SUPP.RECT RC PRN (16:16)
[2018-07-08] MEDS ORDERED: LORazepam 2 MG/ML DISP.SYRIN IV PRN (16:16)
[2018-07-08] MEDS: LORazepam 2 MG/ML DISP.SYRIN IV PRN ×4 (16:38→23:51)
[2018-07-08] MEDS: ACETAMINOPHEN 650 MG SUPP.RECT RC PRN (19:01)
[2018-07-08] MEDS: MORPHINE SULFATE 10 MG/ML SYRG IV PRN (20:07)
[2018-07-08] MEDS: HYDROPHILIC OINTMENT 454 APPL JAR TP SCH (20:21)
[2018-07-09] MEDS: ACETAMINOPHEN 650 MG SUPP.RECT RC PRN ×3 (01:24→13:33)
[2018-07-09] MEDS: LORazepam 2 MG/ML DISP.SYRIN IV PRN ×6 (02:07→17:09)
[2018-07-09] MEDS: MORPHINE SULFATE 10 MG/ML SYRG IV PRN ×12 (03:48→18:21)
[2018-07-09] MEDS: HYDROPHILIC OINTMENT 454 APPL JAR TP SCH (09:00)
--- NOTE | 2018-07-09 16:06 | PN ---
Subjective - Date and Time Seen Date: 07/09/18 Time: 16:03 Subjective Narrative: * patient continues to be non responsive. positive fever. Objective - Review of Systems Misc: All systems neg except as marked - unobtainable due to altered mental status - Vitals Vitals: Last Vital Signs Temp 39.5 C H 07/09/18 14:30 Pulse 137 H 07/09/18 14:30 Resp 28 H 07/09/18 14:30 BP 133/85 07/09/18 14:30 Pulse Ox 96 07/09/18 14:30 - Exam Exam Narrative: P.E. deferred. Assessment/Plan Plan Narrative: Continue with comfort measures and hospice care. - Problems/Diagnosis (1) Altered mental state Problem: Acute (2) Seizures, generalized convulsive Problem: Acute (3) Aspiration into respiratory tract Problem: Acute (4) Leukocytosis Problem: Acute (5) Fever and chills Problem: Acute (6) Acute renal failure Problem: Acute (7) Electrolyte imbalance Problem: Acute (8) Mental retardation Problem: Chronic (9) Seizure disorder Problem: Chronic
[2018-07-11 14:38] VITALS: BP 0/0
--- NOTE | 2018-07-13 12:46 | DS ---
Discharge Summary - Provider Primary Care Provider: Dontrell Vyas Admitting Clinician: Mehnaz Paez Attending Physician on Admission: Mehnaz Paez Pronouncing Clinician: Dontrell Vyas - Date and Time Date of : 07/09/18 Time of : 18:45 - Diagnosis/Cause of (1) Altered mental state Problems: Acute (2) Seizures, generalized convulsive Problems: Acute (3) Aspiration into respiratory tract Problems: Acute (4) Leukocytosis Problems: Acute (5) Fever and chills Problems: Acute (6) Acute renal failure Problems: Acute (7) Electrolyte imbalance Problems: Acute (8) Mental retardation Problems: Chronic - Summary Details (narrative): Frank Tuttle, is a 38-year-old male with a past medical history of seizure disorder, cerebral palsy, mental retardation who was admitted on 07/07/2018 for seizures. History was obtained from the patient's guardian, mother, buildings and grounds supervisor at his assisted living facility. While the patient was being helped to pull up his pants on the day of admission by staff at the facility, he began to seize. He had multiple seizures and was brought to the emergency department. In the emergency department he continued to seize and received several doses of Ativan with good result. Patient was found to be hypoxic with oxygen saturation of 88%. He was started on oxygen supplementation and required 10 L via facemask to maintain his oxygen saturations in the 90s. The emergency room physician was considering intubating the patient however the patient already had a status of DO NOT RESUSCITATE. In addition the patient was found to have leukocytosis in the 30s, elevated lactic acid, and multiple other electrolyte derangements. After discussion with the family it was determined that patient should be managed as comfort care. No diagnostic or therapeutic intervention were started as family did not want to be aggressive. He has remained with altered mental status with fever on and off and the family has decided to make him hospice care. [facility] has agreed to take him. He was transferred to our [facility] . He on 07/09/2018 at 1845. He went into acute respiratory failure from aspiration pneumonia from seizure activities. Procedures Performed: none - Additional Data Confirmation of as documented by pronouncing clinician: no pulse, no respirations, no heart sounds, pupils fixed and dilated Family: at bedside Practitioner(Attending/PCP) notified: Yes Attending physician: Dontrell Vyas Was code activated: No Autopsy requested: No Hydraulic Lift Operator notified: No [employer] notified: Yes Advance Directives: Yes Hospice patient: Yes
== END 2018-07-09 18:45 | disposition expired | DRG 951 ==
LOC: MS 14:56
PROVIDERS: ADMIT Internal Medicine; ATTEND Internal Medicine